=== PATIENT | male | born 1970 | race Caucasian/White ===

== ENCOUNTER 2021-11-12 18:30 | Emergency (ER) | payer BC ==
[2021-11-12] MEDS ORDERED: Meclizine 12.5 MG Tab PO ONE ×2 (19:01→20:14)
[2021-11-12] MEDS ORDERED: Ondansetron 4 MG/2 ML SDV ONE (19:02)
[2021-11-12] MEDS ORDERED: Ondansetron 4 MG/2 ML SDV IVPUSH STA ×2 (19:02→19:25)
[2021-11-12] MEDS ORDERED: Lactated Ringers 1,000 ML IV SCH ×3 (19:15→21:15)
[2021-11-12 19:28] LABS: CHLORIDE,CL 105 mEq/L (98-106); SODIUM,NA 141 mEq/L (136-145)
[2021-11-12] MEDS ORDERED: Iopamidol 755 Mg/ML 100 ML Bottle IVPUSH ONE ×2 (20:03→22:00)
[2021-11-12] MEDS ORDERED: Sodium Chloride 0.9% 100 ML ONE (20:47)
[2021-11-12 20:57] LABS: AMPHETAMINES,URINE NEGATIVE (NEGATIVE); BARBITURATES,URINE NEGATIVE (NEGATIVE); BENZODIAZEPINE,URINE NEGATIVE (NEGATIVE); MDMA (ECSTASY), URINE NEGATIVE (NEGATIVE); METHADONE,URINE NEGATIVE (NEGATIVE); METHAMPHETAMINES,URINE NEGATIVE (NEGATIVE); OPIATES,URINE NEGATIVE (NEGATIVE); OXYCODONE,URINE NEGATIVE (NEGATIVE); PHENCYCLIDINE,URINE NEGATIVE (NEGATIVE); TCA,URINE NEGATIVE (NEGATIVE)
[2021-11-12] MEDS ORDERED: Metoclopramide 10 MG/2 ML SDV ONE (21:03)
[2021-11-12] MEDS ORDERED: diphenhydrAMINE 50 MG/ML SDV IVPUSH ONE (21:05)
[2021-11-13] MEDS ORDERED: Promethazine 25 MG in Sodium Chloride 0.9% 100 ML IV ONE (01:27)
[2021-11-13] MEDS ORDERED: Sodium Chloride 0.9% 100 ML IV SCH (01:30)
== END 2021-11-13 01:30 ==
LOC: CC.ED 18:30 → SUPCPDRO 18:30 → CC.ED 11-13 01:30
DX: R42 Dizziness and giddiness (principal); R11.2 Nausea with vomiting, unspecified; Z79.899 Other long term (current) drug therapy; Z79.01 Long term (current) use of anticoagulants
CPT/HCPCS: 36415; 70450; 70496; 70498; 71045; 71275; 80053; 80305-QW; 81001; 82550; 83605; 83615; 84443; 84484; 85025; 85379; 85610; 86140; 93005; 96361; 96374; 96375; 99285; 99285-25; A9270-GY; J1200; J2405; J2550; J2765; J7120